=== PATIENT | male | born 1945 | race Caucasian/White ===

== ENCOUNTER 2024-02-17 12:34 | Inpatient (IN) ==
--- NOTE | 2024-01-18 09:10 | Anesthesiology Consultation ---
Date of Service January 18, 2024 Assessment & Plan (1) Encounter for pre-operative examination: - Infectious disease screening: Per assessment on 01/18/24: No known infectious disease contacts or current infectious disease symptoms. No noted recent Covid positive test result. - Cardiology visit (12/21/23): " She went to the emergency room due to swelling of his neck. With imaging he was found to have lymphoma along with a 6.7 cm infrarenal AAA. He was evaluated by both oncology and vascular surgery. He will be seeing vascular surgery this afternoon to review his imaging and make further recommendations.. He was found have frequent PVCs on a Holter monitor and his EKG. He is completely asymptomatic with these.. He denies any presyncope or syncope. When he was on 2 blood pressure medications.. He had some orthostatic symptoms. With stopping back and just remain on Toprol but has significantly improved.. He is unaware of his ventricular ectopy. If you look at his Holter monitor he is having frequent bigeminy or trigeminy along with couplets and triplets. He did have some short runs of nonsustained VT up to 6 beats in duration. His functional capacity is greater than 4 METS. He will be undergoing moderate surgery with regards to his EVAR. He has low clinical predictors therefore can proceed with PEVAR if recommended with a cardiac risk in the range of 3%.. With this degree ventricular ectopy he should remain on betablockers. We will need to assess his ventricular function at least yearly. " - Insertion of Infusaport (01/05/24): In anticipation of future chemo treatment (to begin 02/04/24 per PAT RN report from patient). Done with moderate sedation at [facility] by Dr. Lindsey. - Pleural effusion: PET scan done 12/31/23 noted Small right pleural effusion which is new since prior chest CT. This is nonspecific. Small focus of FDG uptake within the right lower hemithorax. Although not strongly suggestive, lymphomatous involvement would be difficult to exclude. > At anesthesiologist discretion DOS if updated chest imaging needed from their perspective after evaluating patient. - Heme/onc visit (01/19/24): " He received cycle 1 day 1 of Bendamustine/rituximab on 01/06/2024 which was complicated by infusion reaction to rituximab but successfully went on to complete treatment. States that he has been doing a lot better since treatment was started with significant improvement in axillary and neck lymphadenopathy. Generalized erythematous rash has also resolved.. He is scheduled for aortic aneurysm surgery.. with Dr. Lindsey.. Thrombocytopenia: Likely due to splenomegaly, bone marrow involvement by lymphoma and treatment.. Infrarenal abdominal aortic aneurysm.. Scheduled for AAA repair.. Doing a lot better from a lymphoma standpoint with significant improvement in peripheral lymphadenopathy.. Repeat CBC on 01/26/2024 to evaluate for worsening thrombocytopenia in the setting of chemotherapy prior to surgery.. Plan to see him on 02/03/2024 prior to treatment and will plan to proceed if he is doing well." - Thrombocytopenia: Per heme/onc records, thrombocytopenia likely due to splenomegaly and bone marrow involvement by lymphoma and treatment (recent chemo). Has underwent first round of chemo 01/2024 (next round planned for 02/04/2024). Most recent labs 01/11/24 note platelets at 85 (previously in the low 100s on comparison labs -12/2023). Reviewed with Dr. Barrios. Received communication note from surgeon's office dated 01/18/24 in which provider was made aware of platelet count and asked if anything further needed preoperatively from their perspective > Response from Orin Khalil [facility], "no, [id number] should be ok" - Heme/onc planning to have updated CBC done in near future to evaluate worsening thrombocytopenia in setting of chemotherapy prior to upcoming surgery- Awaiting updated CBC (scheduled 01/26/24 per CCP note). Chart Review Chart Review: Patient NOT seen in Pre Admission Testing History Surgery Operation Date: 02/17/24 13:00 Proposed Procedures p Percutaneous Endovascular Repair - Parker Lindsey MD Height/Weight Height: 5 ft 9 in Weight: 72.575 kg Allergies Allergy/AdvReac Type Severity Reaction Status Date / Time No Known Drug Allergies Allergy Verified 01/18/24 07:34 enviromental allergies Allergy Unknown Congested Uncoded 01/18/24 07:34 Medications Home Medications Medication Instructions Recorded Confirmed Last Taken fluticasone propionate 50 2 spray intranasal DAILY 12/01/23 01/18/24 01/03/24 08:00 mcg/actuation nasal spray,suspension oxycodone-acetaminophen 5 mg-325 1 tab PO Q8H PRN pain #7 tabs 01/05/24 Unknown mg tablet (Percocet) allopurinol 300 mg tablet 300 mg PO .NOON 01/18/24 01/18/24 Unknown loratadine 10 mg tablet (Claritin) 10 mg PO DAILY PRN allergies 01/18/2401/17 Unknown symptoms metoprolol tartrate 25 mg tablet 25 mg PO QPM 01/18/24 01/18/24 Unknown Past Medical History Medical History AAA (abdominal aortic aneurysm) PET scan 12/31/23: No change in a large infrarenal abdominal aortic aneurysm which measures 6.7 x 6.4 cm. No evidence for rupture. Environmental and seasonal allergies History of COVID-19 2019 or 2020- resolved Lymphoma Dx 11/2023, Completed first round of chemo, due again for second round 02/04/24 Follows with heme/onc (Dr Aviles) Port-A-Cath in place left Thrombocytopenia Likely due to splenomegaly and bone marrow involvement by lymphoma and treatment (recent chemo) per heme/onc records Past Family History Family History Father Cancer Multiple myeloma Mother Cancer Ovarian cancer Brother Cancer Denies family history of Prostate cancer Diabetes Heart disease Myocardial infarction Breast cancer Lung cancer Colorectal cancer Stroke Past Surgical History Surgical History Hx of tooth extraction Social History Smoking Status: Never smoker Do You Dip or Chew Tobacco: No Hx Alcohol Use: No Hx Substance Use: No substance use type: does not use Lab Results Anesthesia Preop Results Results Anesthesia Widget: WBC 17.78 K/ul (4.8-10.8) H 01/11/24 Hgb 14.3 g/dl (14.0-18.0) 01/11/24 Hct 42.0 % (42.0-52.0) 01/11/24 Plt 85 K/uL (130-400) L 01/11/24 Na 136 mmol/L (136-145) 01/11/24 K 4.4 mmol/L (3.5-5.1) 01/11/24 Cl 104 mmol/L (98-107) 01/11/24 CO2 26 mmol/L (21-32) 01/11/24 BUN 39 mg/dl (6-23) H 01/11/24 Creat 1.14 mg/dl (0.6-1.4) 01/11/24 Glucose Level 104 mg/dl (70-99(Fasting)) H 01/11/24 PT 11.0 Seconds (9.0-12.0) 12/17/23 PTT 25 Seconds (21-31) 12/17/23 INR 1.0 (0.9-1.1) 12/17/23 TSH 1.669 uIu/ml (0.300-4.500) 12/01/23 Urine Color Yellow 12/01/23 Urine Appearance Clear (Clear) 12/01/23 Urine pH 5.0 (4.5-7.5) 12/01/23 Urine Specific [place] 1.043 (1.000-1.030) H 12/01/23 Urine Protein Negative (Negative) 12/01/23 Urine Glucose (UA) Negative (Negative) 12/01/23 Urine Ketones Negative (Negative) 12/01/23 Urine Blood 3+ (Negative) H 12/01/23 Urine Nitrite Negative (Negative) 12/01/23 Urine Bilirubin Negative (Negative) 12/01/23 Urine Urobilinogen Negative (Negative) 12/01/23 Urine Leukocyte Esterase Negative (Negative) 12/01/23 Urine WBC (Auto) 1-5 /hpf (0-5) 12/01/23 Urine RBC (Auto) 10-30 /hpf (0-4) H 12/01/23 Urine Hyaline Casts (Auto) 0 /lpf (0-5) 12/01/23 Urine Epithelial Cells (Auto) 0-5 /lpf (0-5) 12/01/23 Urine Bacteria (Auto) Negative (Negative) 12/01/23 Testing Electrocardiogram Date: 12/01/23 SR with PVCs at 90bpm. Low voltage QRS. Septal infarct, age undetermined Echo done 12/10/23* Echocardiogram Date: 12/10/23 EF 65%. No regional wall motion abnormality. No LVH. Probably normal LV diastolic function. Normal left atrial pressure. Mild MR. Trace to mild TR. Estimated PASP 21 mmHg. Sinus rhythm with frequent multifocal PVCs and ventricular couplets and triplets noted throughout the study. "Ordering physician, Parker Lindsey MD, was notified of frequent ventricular ectopy and a 24-hour Holter monitor was ordered and placed on the patient for further evaluation." Other Testing Soft tissue neck CT Date: 12/01/23 1. Pathologic lymphadenopathy of the neck and imaged upper chest suggestive of lymphoma. 2. Soft tissue attenuating mass measuring up to approximately 5 cm is noted within the nasopharyngeal and oropharyngeal tissues suggestive of an additional site of pathologic lymphadenopathy which results in mild to moderate nasop haryngeal and oropharyngeal narrowing. There is additional pathologic enlargement of the lingual tonsils. 3. Probable pathologic lymph node of the right parotid gland. An primary salivary neoplasm considered less likely. Abdomen/Pelvis CT Date: 12/18/23 1. Again seen is a 6.7 x 6.5 cm infrarenal abdominal aortic aneurysm as detailed above. 2. The iliac arteries are patent bilaterally. There is a beaded appearance of both external iliac arteries, which is nonspecific but could potentially be seen with fibromuscular dysplasia. 3. Again seen is There is bulky upper abdominal, retroperitoneal, mesenteric, and inguinal lymphadenopathy. The spleen is also significantly enlarged, and these findings favor a lymphoproliferative process such as lymphoma. Follow up with oncology is recommended. Lymphadenopathy appears modestly worsened as compared to 12/01/2023. 4. The major branches of the abdominal aorta are patent. The inferior mesenteric artery arises from the aneurysm sac. 5. Again seen is a rind of confluent retroperitoneal soft tissue which surrounds the abdominal aorta, encases the IVC, and also extends along/encases the right iliac vessels with extension into the right inguinal canal. This likely represents confluent lymphadenopathy/lymphoma and is similar appearance to the 12/01/2023 examination. Contained rupture of the large abdominal aortic aneurysm is considered much less likely. 6. Bilateral nephrolithiasis. 7. A small right pleural effusion is new from previous. PET Skull-Mid thigh Date: 12/31/23 1. Extensive FDG avid lymphadenopathy within the neck, chest, abdomen and pelvis, similar to CT of December 01, 2023. This is consistent with the history of lymphoma. Left nasopharyngeal soft tissue tissue thickening and splenomegaly with a few small splenic lesions are suggestive of lymphoma. 2. Small right pleural effusion which is new since prior chest CT. This is nonspecific. Small focus of FDG uptake within the right lower hemithorax. Although not strongly suggestive, lymphomatous involvement would be difficult to exclude. 3. No change in a large infrarenal abdominal aortic aneurysm which measures 6.7 x 6.4 cm. No evidence for rupture.
--- NOTE | 2024-02-17 07:38 | History & Physical Report ---
Date of Service February 17, 2024 Assessment & Plan (1) AAA (abdominal aortic aneurysm) without rupture: Plan: Patient admitted for a PEVAR of his AAA. I have discussed the risks options and benefits of the procedure with the patient. The patient understands the risks options and benefits and agrees to the procedure. (2) Lymphoma: Plan: Undergoing chemo at this time History of Present Illness Chief Complaint: AAA Primary Care Provider: Joseph Beltran DO This patient is an elderly male who presents to vascular surgery clinic for an incidentally found abdominal aortic aneurysm measuring 6.[address] scan. Patient states that he and his were concerned about an area of swelling in his right neck and axillary area which began about a month ago, and presented to [facility] emergency department for evaluation. During that workup, he was found to have significant lymphadenopathy with concerns for lymphoma, and is being referred to heme-onc to be seen as an outpatient next week. Imaging had also demonstrated an infrarenal abdominal aortic aneurysm measuring 6.[address] scan. Patient states he had no prior knowledge of this aneurysm, as he has not seen a physician in a very long time. He denies any history of cardiac problems or seeing a machine attendant regularly for any reason. He states he generally feels well, and is still able to perform all of his normal daily activities. He does not have any pain even in the areas of lymphadenopathy. He denies headache, fever, chest pain, shortness of breath, bone pain, nausea, vomiting, rest pain, claudication, nonhealing wounds or ulcers, other complaints. Allergies Allergy/AdvReac Type Severity Reaction Status Date / Time No Known Drug Allergies Allergy Verified 01/18/24 07:34 enviromental allergies Allergy Unknown Congested Uncoded 01/18/24 07:34 Home Medications Medication Instructions Recorded Confirmed Type fluticasone propionate 50 2 spray intranasal DAILY 12/01/23 01/18/24 History mcg/actuation nasal spray,suspension oxycodone-acetaminophen 5 mg-325 1 tab PO Q8H PRN pain #7 tabs 01/05/24 Rx mg tablet (Percocet) allopurinol 300 mg tablet 300 mg PO .NOON 01/18/24 01/18/24 History loratadine 10 mg tablet (Claritin) 10 mg PO DAILY PRN allergies 01/18/24 01/18/24 History symptoms metoprolol tartrate 25 mg tablet 25 mg PO QPM 01/18/24 01/18/24 History Past Med/Surg History Medical History Thrombocytopenia Likely due to splenomegaly and bone marrow involvement by lymphoma and treatment (recent chemo) per heme/onc records Environmental and seasonal allergies AAA (abdominal aortic aneurysm) PET scan 12/31/23: No change in a large infrarenal abdominal aortic aneurysm which measures 6.7 x 6.4 cm. No evidence for rupture. Port-A-Cath in place left History of COVID-19 2019 or 2020- resolved Lymphoma Dx 11/2023, Completed first round of chemo, due again for second round 02/04/24 Follows with heme/onc (Dr Aviles) Surgical History Hx of tooth extraction Family History Father Cancer Multiple myeloma Mother Cancer Ovarian cancer Brother Cancer Denies family history of Prostate cancer Diabetes Heart disease Myocardial infarction Breast cancer Lung cancer Colorectal cancer Stroke Social History Smoking Status: Never smoker Second Hand Exposure: Yes (in the past); Do You Dip or Chew Tobacco: No; Tobacco Cessation Education Requested by Patient: No Hx Alcohol Use: No Hx Substance Use: No Preferred Language: Yakut Communication Ability: Effective Visual Impairment: Limited Hearing Ability: Normal Special Delivery Worker Required: No Beliefs That Will Affect Care: None marital status: Current Living Situation: Spouse current occupational status: retired How many Children do You have: 1 Other Information That Helps Us Care for You: No Feels Safe at Home: Yes Safety Concerns: Feels Safe At This Time Childhood Exposure to Second-Hand Smoke: No caffeine: No Dental Care, Regularly: No Physical Activity Frequency: Does not Exercise Seatbelt Use: always Sunscreen Use: Yes Assistive Devices: Glasses Review of Systems All systems reviewed & are unremarkable except as noted in HPI & below Physical Exam Physical Exam: Constitutional: In general patient is a healthy-appearing well-nourished well- developed elderly male in no distress. He is alert and oriented without any focal deficits. One of his front incisors is broken and rotted. He has a nontender firm swelling in his supraclavicular area on the right, as well as his axilla on the right, and his right groin. His carotids do not demonstrate a bruit. His heart is regular without murmur. His lungs are decreased slightly but clear throughout. His abdomen is soft and nontender with normoactive bowel sounds in all 4 quadrants. His aneurysm is palpable and feels to be at least 6.5 cm. His left femoral pulse is +2, his right femoral pulse is +2. His lower extremity distal pulses are +1. He has brisk capillary refill and no sign of distal ischemia. There is no edema.
[~2024-02-17 12:34] MED LIST: MIDAZOLAM HCL 1 MG/ML 2ML VIAL ONE
[2024-02-17] MEDS: SODIUM CHLORIDE 0.9% 1,000 ML IV SCH (13:07)
[2024-02-17] MEDS ORDERED: ATROPINE SULFATE 0.1 MG/ML 10ML SYR IV PRN (13:14)
[2024-02-17] MEDS ORDERED: HYDROmorphone INJ 1 MG/ML SYRINGE IV PRN (13:14)
[2024-02-17] MEDS ORDERED: ONDANSETRON INJ 2 MG/ML 2 ML VIAL IV PRN (13:14)
[2024-02-17] MEDS ORDERED: ePHEDrine sulfate 50 MG/ML AMP IV PRN (13:14)
[2024-02-17] MEDS ORDERED: fentaNYL citrate PF 100 MCG/2 ML VIAL IV PRN (13:14)
[2024-02-17 13:41] LABS: BUN Creatinine Ratio 17.6 (10-20); Creatinine Clr Calc Pharmacy 49.7 ml/min; Est GFR (African American) 74.2 ml/min; Potassium 3.7 mmol/L (3.5-5.1)
[2024-02-17] MEDS ORDERED: fentaNYL citrate PF 100 MCG/2 ML VIAL ONE (13:44)
--- NOTE | 2024-02-17 14:14 | History & Physical Bridge Note ---
Date of Service February 17, 2024 History & Physical Bridge Note I have examined the patient, reviewed the History & Physical and in the interval since the performance of the History & Physical I have noted the following changes of clinical significance: no changes noted
[2024-02-17] MEDS: CEFAZOLIN 2,000 MG/15 ML SYR IV SCH (14:24)
--- NOTE | 2024-02-17 15:13 | Anesthesia Procedure Note ---
Anesthesia Procedure Note Arterial Line Note Patient medical history, medications, allergies and vitals reviewed. Date of procedure: 02/17/24 Consent: Risk / Benefits Reviewed With: PT / POA / Parent / Guardian, Accepts Plan, Informed Consent Obtained and All Questions Answered Monitors attached: Blood Pressure, CO2, EKG and Pulse Oximetry Oxygen delivery method: ETT Time out completed: Yes Premedication: General anesthesia Laterality: Left Location: Radial Hand hygeine: Soap and water and Alcohol based hand rub Equipment/Supplies: Cap, Mask and Sterile gloves Skin prep: Chloraprep Ultrasound used: Yes US equipment and supplies: Sterile Gel and Sterile Probe Cover Attempts: 2 (first attempt wrist would not thread. 2nd attempt 3 inches proximal to body easy thread) Procedure Summary: 20 gauge angiocath advanced until return of bright red blood. Catheter threaded using seldinger technique with return of pulsatile, bright red blood. Catheter secured with tape and covered with occlusive dressing. Waveform consistent with correct arterial placement. After placement, normal perfusion was observed distal to the site of catheter placement. Post-Procedure: Pt hemodynamically stable, Pt tolerates well and No complication Anesthesia Charges Arterial Line A Line Charges: 76152 Insert Art line Samp/Mon/Evangelista
[2024-02-17] MEDS ORDERED: LARYING-O-JET KIT (LTA) ONE (15:37)
[2024-02-17] MEDS ORDERED: PROPOFOL IV EMULSION 10 MG/ML 20 ML VIAL IV ONE (15:37)
[2024-02-17] MEDS ORDERED: PHENYLEPHRINE 100MCG/ML 10ML SYR IV ONE (15:37)
[2024-02-17] MEDS ORDERED: LIDOCAINE 2% 2 ML VIAL/AMP(20MG/ML) INFIL ONE (15:37)
[2024-02-17] MEDS ORDERED: DEXAMETHASONE SOD INJ 4 MG/ML VIAL ONE (15:37)
[2024-02-17] MEDS ORDERED: PHENYLEPHRINE HCL 25 MG/250 ML NSS IV ONE (15:37)
[2024-02-17] MEDS ORDERED: ePHEDrine sulfate 50 MG/5 ML SYR ONE (15:37)
[2024-02-17] MEDS ORDERED: ROCURONIUM BROMIDE 10 MG/ML 5 ML VIAL IV ONE (15:37)
[2024-02-17] MEDS ORDERED: ONDANSETRON INJ 2 MG/ML 2 ML VIAL ONE (15:37)
--- NOTE | 2024-02-17 16:24 | Post Operative Brief Note ---
Immediate Post Op Note v1 Date of Surgery February 17, 2024 Pre & Post Diagnosis Operation Date: 02/17/24 14:20 Pre-Op Diagnosis: Abdominal Aortic Aneurysm Post-Op Diagnosis: Abdominal Aortic Aneurysm I identified the patient and participated in the time-out.: Yes Procedure Operation Date: 02/17/24 14:20 Actual Procedures p Percutaneous Endovascular Abdominal Aortic Aneurysm Repair, Right Iliac Extension, Mechanical Closure of Bilateral Femoral Arteries(Bilateral) - Parker Lindsey MD Surgeon Parker Lindsey MD Manager Entry MD Daisy Estimated Blood Loss 30 Findings Consistent with Post-Op Diagnosis Drains Yost Catheter Anesthesia Type General Complications none Disposition Accompanied Patient To Recovery: No Disposition: Recovery Room
--- NOTE | 2024-02-17 16:27 | Operative Report ---
Post Operative Report Pre & Post Diagnosis Operation Date: 02/17/24 14:20 Pre-Op Diagnosis: Abdominal Aortic Aneurysm Post-Op Diagnosis: Abdominal Aortic Aneurysm I identified the patient and participated in the time-out.: Yes Procedure Operation Date: 02/17/24 14:20 Actual Procedures p Percutaneous Endovascular Abdominal Aortic Aneurysm Repair, Right Iliac Extension, Mechanical Closure of Bilateral Femoral Arteries(Bilateral) - Parker Lindsey MD Surgeon Parker Lindsey MD Commercial Green Building Architect Oziel Call MD Estimated Blood Loss 30 Findings Consistent with Post-Op Diagnosis 79M with large AAA. Following deployment of endograft, there was exclusion of the aneurysm sac. The SMA, bilateral renal arteries and bilateral internal iliac arteries remained patent. There was no Type I or III endoleak. There was a delayed type II endoleak. Specimens None Anesthesia Type General Complications None Indications This is a 79 year old gentleman with a 6.5cm AAA, asymptomatic, meeting criteria for elective repair Description of Procedure The patient was taken to the operating room suite and placed in the supine position. Patient was placed under general anesthesia. The abdomen, bilateral groins, and bilateral thigh was then prepped and draped in a sterile manner. Using ultrasound guidance, the right common femoral artery was accessed using micropuncture technique. A J wire was then inserted. A small skin incision was made at the skin site of entry and subcutaneous tissue was dilated using a hemostat. A 8Fr Manta measuring device was inserted to dilate the artery and measure depth of 2cm. The measuring device was then exchanged for an 8Fr sheath over the wire. The wire was then exchanged for a Nini wire. Attention was then turned to the left groin where the left common femoral artery was accessed using micropuncture technique. A J wire was then inserted. A small skin incision was made at the skin site of entry and subcutaneous tissue was dilated using a hemostat. A 8Fr Manta measuring device into the left common femoral artery over the angled glide wire, measuring a depth of 3cm. The measuring device was then exchanged for an 8Fr sheath over the wire. The wire was then exchanged for a Inni wire. An 12Fr DrySeal sheath was then advanced into the infrarenal aorta under fluoroscopic imaging on the left. An 16Fr DrySeal sheath was then advanced into the infrarenal aorta under fluoroscopic imaging on the right. The patient was then systemically heparinized with 5000U IV heparin On the right side, the Eldridge Excluder C3 23mm x 14.5 x 16cm was advanced up the r ight side to the level of about L2. A pigtail catheter was advanced over the wire on the left, the wire was removed and the pigtail was connected to the power injector. An aortogram was taken and the level of the inferior origin of the bilateral renal arteries were marked. The main body device was deployed to the opening of the contralateral gate. From the left side, the pigtail catheter was exchanged for an Confianza catheter over an angled glide wire. The contralateral gate was cannulated using an angled glide wire. An image from the left groin was taken marking the origin of the common and internal iliac artery on the left. An appropriately sized 16mm x 14.5mm x14mm Eldridge limb was then advanced and deployed. An image from the right groin was taken marking the origin of the common and internal iliac artery on the right. On the right appropriately sized 16mm x 14.5mm x 7cm limb was deployed and then ballooned using hand insufflation. The proximal graft, origin of left limb at the flow divider, and the distal limb were then ballooned using hand insufflation. A completion angiogram was performed demonstrating AAA exclusion with a delayed type II endoleak, no other endoleak. Bilateral renal arteries and internal iliac arteries patent with brisk filling. The left DrySeal sheath was exchanged for the 14Fr Manta device. The Manta was deployed. Adequate hemostasis was obtained. Pressure was held. The right DrySeal sheath was exchanged for the 18Fr Manta device. The Manta was deployed. Adequate hemostasis was obtained. Patient was extubated and taken to the PACU in stable condition. A total of 10.5min of fluoroscopy time, 177 mGy and 125cc contrast used for the duration of the case. Dr. Lindsey was present and scrubbed for the entire procedure. I attest to the content of the Intraoperative Record and any orders documented therein. Any exceptions are noted below. Supervising Physician Co-Signing Physician Notes Parker Lindsey MD
[2024-02-17] MEDS: VISIPAQUE IV PRN (16:40)
[2024-02-17] MEDS ORDERED: STAT IV Infusion **Titration per Protocol STA (16:46)
[2024-02-17] MEDS: PHENYLEPHRINE/NSS 25 MG/250 ML BAG IV SCH (16:57)
[2024-02-17 17:14] LABS: Hematocrit (blood only) 31.9 % (42.0-52.0); Hemoglobin 10.6 g/dl (14.0-18.0)
--- NOTE | 2024-02-17 17:27 | Anesthesiology Progress Note ---
Date of Service February 17, 2024 Anesthesia Post Procedure Vital Signs Vital Signs: Temp Pulse Resp BP BP BP Pulse Ox 02/17/24 17:20 36.8 C 85 24 108/50 L 95 02/17/24 17:10 92 H 21 116/57 L 97 02/17/24 17:00 80 24 114/54 L 97 02/17/24 16:50 85 22 120/58 L 97 02/17/24 16:40 84 21 137/64 96 02/17/24 16:31 36.9 C 84 24 94/46 L 96 02/17/24 13:13 36.7 C 140/64 152/79 H 02/17/24 13:07 104 H 18 178/95 H 98 O2 Del Method O2 Flow Rate 02/17/24 17:20 Oxymask 2 02/17/24 17:10 Oxymask 4 02/17/24 17:00 Oxymask 4 02/17/24 16:50 Oxymask 8 02/17/24 16:40 Oxymask 12 02/17/24 16:31 Oxymask 12 02/17/24 13:13 02/17/24 13:07 Room Air Transfer of Care Handoff Completed per policy Notes Mental Status: alert / awake / arousable Patient Amnestic to Procedure: Yes Nausea / Vomiting: adequately controlled Pain: adequately controlled Airway Patency, RR, SpO2: stable & adequate BP & HR: stable & adequate Hydration State: stable & adequate Anesthetic Complications: no major complications apparent and Pt Satisfied with anesthetic care
[2024-02-17] MEDS ORDERED: LORATADINE 10 MG TAB PO PRN (18:34)
[2024-02-17] MEDS ORDERED: oxyCODONE/ACETAMINOPHEN 5mg/325mg TAB PO PRN (18:34)
--- NOTE | 2024-02-17 18:40 | Critical Care Consultation ---
Date of Consultation February 17, 2024 Assessment & Plan (1) AAA (abdominal aortic aneurysm) without rupture: (2) Lymphoma: (3) PVC (premature ventricular contraction): Plan Reason Critically Ill: 79 yom admitted to the ICU POD #0 from EVAR of 6.7 infrarenal AAA Neuro - Acute pain post procedure CAM ICU: Negative - neurologically intact, awake and alert - pain controlled- teired pain medication on board Cardiac - EVAR repair, PVC - bilateral groin incisions without hematoma, peripheral pulses palpable, distal extremities warm - currently without need for vasopressor medications - EBL 30- postoperative HGB 10.6 Respiratory - No acute needs GI - No acute needs - advance diet as tolerated RENAL/LYTES - CKD III - no acute needs at this time - follow bmp for renal indices post operative - NO acute needs - Yost to gravity draining dilute yellow urine ENDO - Elevated serum glucose without diagnosis of DM - follow dextrose sticks- ICU hyperglycemic protocol- goal <180mg/dl HEME - 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 This is a life/limb threatening event. This includes time spent evaluating patient, direct bedside care, chart review, placing orders, interpretation of diagnostic studies, discussion with consultants, patient, and family members, as well as other required patient management activities. This time is exclusive of all separately billable procedures, and teaching time and separate from and in addition to any other critical care service time. Thank you for allowing us to participate in the care of this patient. Please refer to my attending physician's documentation for any further recommendations. Supervising Physician Co-Signing Physician Notes Patient seen and examined. EMR reviewed. Discussed with critical care LEXX. Agree with assessment plan as noted. Refer to my progress note from 02/18/2024 for additional details History of Present Illness Reason for Consultation: s/p EVAR Requesting Physician: Parker Lindsey MD Attending Physician: Parker Lindsey MD History of Present Illness 79 YOM with medical history of: mantle cell Lymphoma- undergoing current chemotherapy with bendamustine/rituximab, PVCS, CKD, 6.7 AAA infrarenal. Patient is now POD #0 from EVAR through right illiac extension- EBL was 30, post operative HGB 10.6. Patient is to the ICU alert, awake, is without vasopressor needs, and pain is controlled. He is eating dinner on my evaluation. Patient is to the ICU for monitoring of NV status and hemodyanmic status. CODE: FULL Allergies Allergy/AdvReac Type Severity Reaction Status Date / Time pollen extracts Allergy Unknown Congested Verified 02/17/24 16:49 No Known Drug Allergies Allergy Unknown Verified 02/17/24 16:49 Home Medications Medication Instructions Recorded Confirmed Type fluticasone propionate 50 2 spray intranasal DAILY 12/01/23 02/17/24 History mcg/actuation nasal spray,suspension oxycodone-acetaminophen 5 mg-325 1 tab PO Q8H PRN pain #7 tabs 01/05/24 02/17/24 Rx mg tablet (Percocet) allopurinol 300 mg tablet 300 mg PO .NOON 01/18/24 02/17/24 History loratadine 10 mg tablet (Claritin) 10 mg PO DAILY PRN allergies 01/18/24 02/17/24 History symptoms metoprolol succinate 25 mg 25 mg PO HS 02/17/24 02/17/24 History tablet,extended release 24 hr Patient History Medical History Thrombocytopenia Likely due to splenomegaly and bone marrow involvement by lymphoma and treatment (recent chemo) per heme/onc records Environmental and seasonal allergies AAA (abdominal aortic aneurysm) PET scan 12/31/23: No change in a large infrarenal abdominal aortic aneurysm which measures 6.7 x 6.4 cm. No evidence for rupture. Port-A-Cath in place left History of COVID-19 2019 or 2020- resolved Lymphoma Dx 11/2023, Completed first round of chemo, due again for second round 02/04/24 Follows with heme/onc (Dr Aviles) Surgical History Hx of tooth extraction Family History Father Cancer Multiple myeloma Mother Cancer Ovarian cancer Brother Cancer Denies family history of Prostate cancer Diabetes Heart disease Myocardial infarction Breast cancer Lung cancer Colorectal cancer Stroke Social History Smoking Status: Never smoker Second Hand Exposure: Yes (in the past); Do You Dip or Chew Tobacco: No; Tobacco Cessation Education Requested by Patient: No Hx Alcohol Use: No Hx Substance Use: No Preferred Language: Greek Communication Ability: Effective Visual Impairment: Limited Hearing Ability: Normal Financial Services Auditor Required: No Beliefs That Will Affect Care: None marital status: Current Living Situation: Spouse current occupational status: retired How many Children do You have: 1 Other Information That Helps Us Care for You: No Feels Safe at Home: Yes Safety Concerns: Feels Safe At This Time Childhood Exposure to Second-Hand Smoke: No caffeine: No Dental Care, Regularly: No Physical Activity Frequency: Does not Exercise Seatbelt Use: always Sunscreen Use: Yes Assistive Devices: Glasses Review of Systems Review of Systems: REVIEW OF SYSTEMS: Constitutional: No fever, sweats or chills Eyes: No diplopia, no worsening or blurred vision ENT: normal hearing, no trouble swallowing Respiratory: No cough, sputum, dyspnea at rest or on exertion Cardiovascular: No chest pain, tightness or palpitations Abdomen: No pain, nausea, vomiting, diarrhea or constipation Musculoskeletal: No joint pain, calf pain, swelling Neurologic: No weakness, numbness/tingling, or balance problems Psychiatric: No anxiety or depression Skin: No rash or itch Physical Exam Physical Exam: PHYSICAL EXAM: General: awake, alert, no apparent distress Head: Normocephalic, atraumatic ENT: PERRL, EOMI, no pharyngeal exudate, mucous membranes moist Neuro: AAO x 3, speech clear and appropriate, strength intact bilaterally 5/5, sensation intact and equal all extremities and dermatomes, no pronator drift Chest: equal rise and fall of the chest, no accessory muscle use, Clear to auscultation, on room air, Cardiac: Regular rate and rhythm, telemetry reviewed- NSR occasional PVC, skin warm dry, cap refill <3 seconds, peripheral pulses +2 no JVD, no murmur, right and left groin groin with dressing in place without any hematoma. Pulses strong, radial arterial line in place. GI: NABS x 4 quadrants, soft, nontender to palpation, no rebound, guarding or tenderness : Yost in place, no pain, no CVA tenderness, Extremities: Normal inspection, no peripheral edema or erythema, calfs nontender to palpation Psych: Normal mood and affect Results & Data Results & Data Vital Signs (Past 12 Hours) Vital Signs Temp Pulse Resp BP BP BP Pulse Ox 02/17/24 18:15 85 24 124/56 L 95 02/17/24 18:00 90 19 122/54 L 96 02/17/24 17:50 87 24 119/55 L 94 02/17/24 17:40 87 20 112/54 L 92 02/17/24 17:30 87 20 112/51 L 94 02/17/24 17:20 36.8 C 85 24 108/50 L 95 02/17/24 17:10 92 H 21 116/57 L 97 02/17/24 17:00 80 24 114/54 L 97 02/17/24 16:50 85 22 120/58 L 97 02/17/24 16:40 84 21 137/64 96 02/17/24 16:31 36.9 C 84 24 94/46 L 96 02/17/24 13:13 36.7 C 140/64 152/79 H 02/17/24 13:07 104 H 18 178/95 H 98 O2 Del Method O2 Flow Rate 02/17/24 18:15 Nasal Cannula 2 02/17/24 18:00 Nasal Cannula 2 02/17/24 17:50 Nasal Cannula 2 02/17/24 17:40 Room Air 0 02/17/24 17:30 Oxymask 2 02/17/24 17:20 Oxymask 2 02/17/24 17:10 Oxymask 4 02/17/24 17:00 Oxymask 4 02/17/24 16:50 Oxymask 8 02/17/24 16:40 Oxymask 12 02/17/24 16:31 Oxymask 12 02/17/24 13:13 02/17/24 13:07 Room Air Laboratory Results Abnormal lab results 02/17/24 02/17/24 Range/Units 12:57 16:46 Hgb 10.6 L (14.0-18.0) g/dl Hct 31.9 L (42.0-52.0) % Glucose 121 H (70-99(Fasting)) mg/dl Crossmatch See Detail Medications Administered Phenylephrine HCl (Phenylephrine/Nss) 25 mg in 250 mls @ 19.65 mls/hr IV .[id number] LEON; Protocol Stop: 03/18/24 16:45 Last Titration: 02/17/24 19:08 Dose: 0 mcg/kg/min, 0 mls/hr Documented By: ROMY Co-signed By: KYLE Titration: 02/17/24 18:35 Dose: 0.3 mcg/kg/min, 11.8 mls/hr Documented By: ROMY Co-signed By: TAN Admin: 02/17/24 16:57 Dose: 0.5 mcg/kg/min, 19.7 mls/hr Documented By: OLAMIDE Co-signed By: LUPE Iodixanol (Visipaque) 125 ml IV UD PRN PRN Reason: Interaction Checking Stop: 02/21/24 16:38 Last Admin: 02/17/24 16:40 Dose: 125 ml Documented By: [id number] Discontinued Medications Heparin Sodium/Sodium Chloride (Heparin In Nss Infusion 1000 Unit/500 Ml (2 U/Ml) Bag) Confirm Administered Dose 2,000 units IV .STK-MED ONE Stop: 02/17/24 14:07 Last Admin: 02/17/24 16:39 Dose: 200 units Documented By: [id number] Sodium Chloride (Nss) 1,000 mls @ 80 mls/hr IV .[id number] LEON Stop: 02/17/24 18:29 Last Admin: 02/17/24 13:07 Dose: 80 mls/hr Documented By: MARYAM Cefazolin Sodium (Ancef 2000mg) 2,000 mg in 15 mls @ 3.75 mls/min IV PREOP LEON; Protocol Stop: 02/17/24 18:00 Last Admin: 02/17/24 14:24 Dose: 3.75 mls/min Documented By: ROMEO Coding Level of Care Code 25119 CRITICAL CARE 1ST 30-74M Diagnoses AAA (abdominal aortic aneurysm) without rupture I71.40 Lymphoma C85.90 PVC (premature ventricular contraction) I49.3
[2024-02-17] MEDS: D5W AND 1/2NSS 1,000 ML IV SCH (19:43)
[2024-02-17] MEDS: allopurinoL 300 MG TAB PO SCH (19:44)
[2024-02-17] MEDS: METOPROLOL SUCC 25MG EXT REL TAB PO SCH (19:55)
[2024-02-17] MEDS: ceFAZolin 2000MG 2,000 MG/15 ML SYR IV SCH (21:03)
[2024-02-18 06:33] LABS: Calcium 7.9 mg/dl (8.6-10.3); Creatinine Clr Calc Pharmacy 56.6 ml/min; Est GFR (African American) 81.4 ml/min; Est GFR (Non-African American) 70.3 ml/min; Potassium 3.9 mmol/L (3.5-5.1)
[2024-02-18 06:45] LABS: Hemoglobin 10.1 g/dl (14.0-18.0); Mean Corpuscular Hemoglobin 28.9 pg (25.0-34.0); Mean Corpuscular Hgb Conc 32.6 g/dL (32.0-36.0); Mean Corpuscular Volume 88.6 fL (80.0-100.0); Mean Platelet Volume 9.9 fL (9.4-12.4); Platelet Count 177 K/uL (130-400); RDW Coefficient of Variation 15.9 % (11.5-14.5); RDW Standard Deviation 50.4 fL (36.4-46.3); White Blood Count 16.65 K/ul (4.8-10.8)
--- NOTE | 2024-02-18 07:40 | Critical Care Progress Note ---
Date of Service February 18, 2024 Assessment & Plan (1) AAA (abdominal aortic aneurysm) without rupture: (2) Lymphoma: (3) PVC (premature ventricular contraction): Plan Impression: 79-year-old male status post EVAR. He is doing well postoperatively. Recommendations: 1. Postop EVAR: Doing well. Management and disposition per vascular surgery. 2. Discontinue arterial line and IV fluids as the patient is taking p.o. adequately currently. 3. Mild anemia: No evidence of acute blood loss or need for transfusion. Continue to follow clinically. 4. Postoperative labs unremarkable. The patient's critical care issues have resolved at this point in time. Critical care services will sign off. Disposition per vascular surgery. Feel free to contact us if we can be of additional assistance. Admission and Anticipated Discharge Date Admission Date: February 17, 2024 Subjective Patient seen and examined. EMR reviewed. Discussed with bedside critical care nurse and on multidisciplinary rounds. The patient is doing very well. He has no complaints. He specifically denies chest pain, abdominal pain, nausea, or vomiting. No numbness or tingling. He is able to tolerate a diet. He slept poorly due to the alarms. He is not having any pain at the surgical site Review of Systems Review of Systems: All systems reviewed & are unremarkable except as noted in Subjective Physical Exam Constitutional: WD/WN, vitals as above Neck: trachea midline, no thyromegaly Respiratory: normal respiratory effort, lungs clear to auscultation Cardiovascular: RRR, no murmur, no edema Gastrointestinal (Abdomen): normal bowel sounds, soft, nontender, no hepatosplenomegaly Musculoskeletal: Extremities: extremities normal to inspection Skin: no rashes, warm and dry Neurologic: Nonfocal exam Lymphatic: no cervical lymphadenopathy Results & Data Results & Data Vital Signs (Past 12 Hours) Vital Signs Temp Pulse Resp BP BP Pulse Ox O2 Del Method 02/18/24 05:27 109/62 02/18/24 05:23 36.3 C L 79 20 109/62 94 Room Air 02/18/24 05:00 36.9 C 75 19 99/42 L 93 Room Air 02/18/24 04:00 36.8 C 78 24 101/54 L 94 Room Air 02/18/24 03:00 36.6 C 84 19 109/62 94 Room Air 02/18/24 02:41 86 18 103/51 L 95 Room Air 02/18/24 02:00 36.5 C 80 26 H 102/51 L 93 02/18/24 01:00 36.7 C 80 20 107/49 L 93 Room Air 02/18/24 00:00 36.5 C 89 20 106/58 L 93 Room Air 02/18/24 00:00 88 02/17/24 23:00 36.8 C 89 20 107/60 92 Room Air 02/17/24 22:00 36.8 C 92 H 24 112/72 93 Room Air 02/17/24 21:00 36.6 C 93 H 18 126/68 96 Nasal Cannula 02/17/24 20:19 36.6 C 100 H 19 132/61 95 Nasal Cannula 02/17/24 20:00 100 H 20 96 Nasal Cannula O2 Flow Rate 02/18/24 05:27 02/18/24 05:23 02/18/24 05:00 02/18/24 04:00 02/18/24 03:00 02/18/24 02:41 02/18/24 02:00 02/18/24 01:00 02/18/24 00:00 02/18/24 00:00 02/17/24 23:00 02/17/24 22:00 02/17/24 21:00 1 02/17/24 20:19 2 02/17/24 20:00 2 Critical Care Results & Data Vital Signs (Past 12 Hours) Vital Signs Temp Pulse Resp BP BP Pulse Ox O2 Del Method 02/18/24 05:27 109/62 02/18/24 05:23 36.3 C L 79 20 109/62 94 Room Air 02/18/24 05:00 36.9 C 75 19 99/42 L 93 Room Air 02/18/24 04:00 36.8 C 78 24 101/54 L 94 Room Air 02/18/24 03:00 36.6 C 84 19 109/62 94 Room Air 02/18/24 02:41 86 18 103/51 L 95 Room Air 02/18/24 02:00 36.5 C 80 26 H 102/51 L 93 02/18/24 01:00 36.7 C 80 20 107/49 L 93 Room Air 02/18/24 00:00 36.5 C 89 20 106/58 L 93 Room Air 02/18/24 00:00 88 02/17/24 23:00 36.8 C 89 20 107/60 92 Room Air 02/17/24 22:00 36.8 C 92 H 24 112/72 93 Room Air 02/17/24 21:00 36.6 C 93 H 18 126/68 96 Nasal Cannula 02/17/24 20:19 36.6 C 100 H 19 132/61 95 Nasal Cannula 02/17/24 20:00 100 H 20 96 Nasal Cannula O2 Flow Rate 02/18/24 05:27 02/18/24 05:23 02/18/24 05:00 02/18/24 04:00 02/18/24 03:00 02/18/24 02:41 02/18/24 02:00 02/18/24 01:00 02/18/24 00:00 02/18/24 00:00 02/17/24 23:00 02/17/24 22:00 02/17/24 21:00 1 02/17/24 20:19 2 02/17/24 20:00 2 Lab & Micro Results (Past 24 Hours) RBC 3.50 M/uL (4.70-6.10) L 02/18/24 WBC 16.65 K/ul (4.8-10.8) H 02/18/24 Hgb 10.1 g/dl (14.0-18.0) L 02/18/24 Hct 31.0 % (42.0-52.0) L 02/18/24 MCV 88.6 fL (80.0-100.0) 02/18/24 MCH 28.9 pg (25.0-34.0) 02/18/24 MCHC 32.6 g/dL (32.0-36.0) 02/18/24 RDW Standard Deviation 50.4 fL (36.4-46.3) H 02/18/24 RDW Coefficient of Variation 15.9 % (11.5-14.5) H 02/18/24 Plt Count 177 K/uL (130-400) 02/18/24 MPV 9.9 fL (9.4-12.4) 02/18/24 Na 138 mmol/L (136-145) 02/18/24 K 3.9 mmol/L (3.5-5.1) 02/18/24 Cl 108 mmol/L (98-107) H 02/18/24 CO2 23 mmol/L (21-32) 02/18/24 Anion Gap 7 (3-11) 02/18/24 BUN 17 mg/dl (6-23) 02/18/24 Creatinine 1.00 mg/dl (0.6-1.4) 02/18/24 Estimated GFR ( Amer) 81.4 ml/min 02/18/24 Estimated GFR (Non-Af Amer) 70.3 ml/min 02/18/24 BUN/Creatinine Ratio 17.0 (10-20) 02/18/24 Glu 138 mg/dl (70-99(Fasting)) H 02/18/24 Ca 7.9 mg/dl (8.6-10.3) L 02/18/24 Calcium Level 7.9 mg/dl (8.6-10.3) L 02/18/24 05:02 I & O Totals 24 Hours 02/17/24 02/18/24 02/19/24 06:59 06:59 06:59 Intake Total 3482.834 / 3482.834 Output Total 1255 / 1255 Balance 2227.834 / 2227.834 Cumulative 01/15/24 13:20 thru 02/18/24 06:30 Intake Total 3482.834 Output Total 1255 Balance 2227.834 RT Ventilator Mngmt (Last Documented) Ventilator Ordered Settings Respiratory Rate 20 02/18/24 05:23 Ventilator - PT Measurements Respiratory Rate 20 Coding Level of Care Code 07310 SUB INP/OBS CARE 2/35MIN Diagnoses AAA (abdominal aortic aneurysm) without rupture I71.40 Lymphoma C85.90 PVC (premature ventricular contraction) I49.3
[2024-02-18 08:06] LABS: Basophils # (auto) 0.07 K/uL (0.00-0.20); Basophils % (auto) 0.4 %; Eosinophils # (auto) 0.02 K/uL (0.00-0.50); Eosinophils % (auto) 0.1 %; Immature Granulocytes # (auto) 0.23 K/uL (0.01-0.20); Immature Granulocytes % (auto) 1.4 %; Lymphocytes # (auto) 1.32 K/uL (1.20-3.40); Lymphocytes % (auto) 7.9 %; Monocytes # (auto) 1.67 K/uL (0.11-0.59); Neutrophils # (auto) 13.34 K/uL (1.40-6.50); Neutrophils % (auto) 80.2 %; Polychromasia 1+
[2024-02-18] MEDS: FLUTICASONE PROPIONATE NA SPR 16 GM BTL SCH (08:14)
== END 2024-02-18 15:58 | disposition home or self-care (01) | DRG 269 ==
LOC: ASU 12:34 → 1E 14:13
DX: E11.22 Type 2 diabetes mellitus with diabetic chronic kidney disease; I71.43 Infrarenal abdominal aortic aneurysm, without rupture; Z95.828 Presence of other vascular implants and grafts; Z86.16 Personal history of COVID-19; I49.3 Ventricular premature depolarization; G89.18 Other acute postprocedural pain; C83.10 Mantle cell lymphoma, unspecified site; N18.30 Chronic kidney disease, stage 3 unspecified